=== PATIENT | male | born 1990 | race American Indian/Alaskan Native ===

== ENCOUNTER 2016-12-09 11:57 | Emergency (ER) | payer SELFPAY ==
[2016-12-09] MEDS ORDERED: KEPPRA 1,000 MG/NS 0.75% 100ML 1,000 MG/100 ML BAG IV ONE (12:17)
--- NOTE | 2016-12-09 12:29 | Emergency Department Report ---
ED Seizure HPI - General Chief Complaint: Seizure Stated Complaint: SEIZURE/FALL Time Seen by Provider: 12/09/16 12:13 Source: patient, EMS Mode of arrival: Stretcher Limitations: Other - History of Present Illness Initial Comments: 26-year-old male with a known seizure history here post-tonic clonic seizure. He has been without his Keppra for at least 5 days. He had a recurrent seizure 3 days ago. No other precipitating events no fevers chills nausea vomiting headache. He does have an abrasion to his left cheek and his left lower jaw. In addition he has a avulsion to the bridge of his nose. MD Complaint: seizure -: Sudden Description of Episode: tonic-clonic movement Trauma: Yes Seizure History: known seizure disorder, history of non-compliance Place: street/outdoors Possible Precipitating Event: none, medication (lack of medication) Associated Symptoms: denies other symptoms Treatments Prior to Arrival: none - Related Data Previous Rx's Medication Instructions Recorded Last Taken Type Cephalexin [Keflex] 500 mg PO Q8HR #21 cap 12/09/16 Unknown Rx HYDROcodone/APAP 5-325 [[place] 1 each PO Q6HR PRN #5 tablet 12/09/16 Unknown Rx 5-325 mg TAB] Ibuprofen [Motrin] 600 mg PO Q8H PRN #30 tablet 12/09/16 Unknown Rx levETIRAcetam [Keppra TAB] 1,000 mg PO BID #60 tablet 12/09/16 Unknown Rx Allergies Allergy/AdvReac Type Severity Reaction Status Date / Time No Known Allergies Allergy Unverified 11/28/13 19:39 ED Review of Systems ROS: Stated complaint: SEIZURE/FALL Other details as noted in HPI Constitutional: denies: chills, fever Eyes: denies: eye pain, eye discharge, vision change ENT: other (nose pain). denies: ear pain, throat pain Respiratory: denies: cough, shortness of breath, wheezing Cardiovascular: denies: chest pain, palpitations Endocrine: no symptoms reported Gastrointestinal: denies: abdominal pain, nausea, diarrhea Genitourinary: denies: urgency, dysuria Musculoskeletal: denies: back pain, joint swelling, arthralgia Skin: denies: rash, lesions Neurological: denies: headache, weakness, paresthesias Psychiatric: denies: anxiety, depression Hematological/Lymphatic: denies: easy bleeding, easy bruising ED Past Medical Hx - Past Medical History Previous Medical History?: Yes Hx Seizures: Yes Hx Psychiatric Treatment: No - Surgical History Past Surgical History?: No - Family History Family history: no significant - Social History Smoking Status: Current Every Day Smoker Substance Use Type: None - Medications Home Medications: Home Medications Medication Instructions Recorded Confirmed Last Taken Type Cephalexin [Keflex] 500 mg PO Q8HR #21 cap 12/09/16 Unknown Rx HYDROcodone/APAP 5-325 [[place] 1 each PO Q6HR PRN #5 tablet 12/09/16 Unknown Rx 5-325 mg TAB] Ibuprofen [Motrin] 600 mg PO Q8H PRN #30 tablet 12/09/16 Unknown Rx levETIRAcetam [Keppra TAB] 1,000 mg PO BID #60 tablet 12/09/16 Unknown Rx ED Physical Exam - General Limitations: No Limitations, Other General appearance: alert - Expanded Head Exam Expanded Head exam: Present: laceration (bridge of nose). Absent: hematoma, racoon eyes , caba's sign 1 - Avulsion 2 - Abrasion 3 - Abrasion - Eye Eye exam: Present: normal appearance Pupils: Present: normal accommodation - ENT ENT exam: Present: normal exam, mucous membranes dry, other (no evidence of trauma) - Neck Neck exam: Present: normal inspection. Absent: tenderness, lymphadenopathy - Respiratory Respiratory exam: Present: normal lung sounds bilaterally. Absent: respiratory distress - Cardiovascular Cardiovascular Exam: Present: regular rate, normal rhythm - GI/Abdominal GI/Abdominal exam: Present: soft. Absent: distended - Extremities Exam Extremities exam: Present: normal inspection, full ROM - Back Exam Back exam: Present: normal inspection - Neurological Exam Neurological exam: Present: alert, oriented X3. Absent: CN II-XII intact - Psychiatric Psychiatric exam: Present: normal affect, normal mood. Absent: depressed ED Course Vital Signs 12/09/16 12/09/16 12/09/16 11:54 12:00 12:04 Temperature 97.6 F Pulse Rate 77 85 Respiratory 13 13 Rate Blood Pressure 117/75 Blood Pressure 122/79 [Left] O2 Sat by Pulse 97 100 99 Oximetry 12/09/16 12/09/16 12:30 13:01 Temperature Pulse Rate 73 60 Respiratory 19 16 Rate Blood Pressure 124/77 112/69 Blood Pressure [Left] O2 Sat by Pulse 99 99 Oximetry - Laceration /Wound Repair Nose Wound Location: head (nose) Wound Length (cm): 5 (millimeters circumferential) Wound's Depth, Shape: flap Wound Explored: clean Irrigated w/ Saline (ccs): 500 Betadine Prep?: No Anesthesia: 1% Lidocaine Wound Repaired With: sutures Suture Size/Type: 4:0 Number of Sutures: 4 Layer Closure?: No Sterile Dressing Applied?: No Progress: Patient tolerated without complication. ED Medical Decision Making - Lab Data Result diagrams: 12/09/16 12:30 12/09/16 12:30 Laboratory Results - last 24 hr 12/09/16 12/09/16 12:30 12:30 WBC 7.4 RBC 5.19 H Hgb 14.7 Hct 44.8 MCV 86 MCH 28 MCHC 33 RDW 13.0 L Plt Count 187 Lymph % (Auto) 7.7 L [place] % (Auto) 3.9 Eos % (Auto) 0.2 Baso % (Auto) 0.2 Lymph # 0.6 L [place] # 0.3 Eos # 0.0 Baso # 0.0 Seg Neutrophils % 88.0 H Seg Neutrophils # 6.5 Sodium 138 Potassium 4.4 Chloride 98.2 Carbon Dioxide 25 Anion Gap 19 BUN 9 Creatinine 1.0 Estimated GFR > 60 BUN/Creatinine Ratio 9.00 Glucose 135 H Calcium 9.4 - Medical Decision Making 26-year-old male with known seizure disorder noncompliant with medications here with recurrent seizure. Plan to repair laceration on the bridge of his nose. We'll give him a dose of Keppra planned a CT head neck and face although I suspect that he does not have fracture. CT head neck and face all unremarkable. Labs unremarkable. Discussed at length with family regarding patient's medications. He will follow up with social work to help with pain meds. Plan to discharge home on oral antibiotics. Patient counseled to follow up in 5 days for suture removal. Portions of this chart were dictated with dictation software. There may be dictation errors contained within this note. Critical care attestation.: If time is entered above; I have spent that time in minutes in the direct care of this critically ill patient, excluding procedure time. ED Disposition Clinical Impression: Seizure, Laceration Disposition: DC- TO HOME OR SELFCARE Is pt being admited?: No Condition: Stable Instructions: Recurrent Seizures Adult (ED), Laceration (ED) Prescriptions: Cephalexin [Keflex] 500 mg PO Q8HR #21 cap HYDROcodone/APAP 5-325 [[place] 5-325 mg TAB] 1 each PO Q6HR PRN #5 tablet PRN Reason: Pain Ibuprofen [Motrin] 600 mg PO Q8H PRN #30 tablet PRN Reason: Pain levETIRAcetam [Keppra TAB] 1,000 mg PO BID #60 tablet Referrals: PRIMARY CARE, [Primary Care Provider] - 3-5 Days
[2016-12-09 12:50] LABS: Basophils % (Auto) 0.2 % (0.0-1.8); Eosinophils % (Auto) 0.2 % (0.0-4.3); Hematocrit 44.8 % (35.5-45.6); Hemoglobin 14.7 gm/dl (11.8-15.2); Mean Corpuscular HGB Conc 33 % (32-34); Mean Corpuscular Hemoglobin 28 pg (28-32); Mean Corpuscular Volume 86 fl (84-94); Platelet Count 187 K/mm3 (140-440); Red Blood Count 5.19 M/mm3 (3.65-5.03); White Blood Count 7.4 K/mm3 (4.5-11.0)
[2016-12-09 13:04] LABS: Anion Gap 19 mmol/L; Blood Urea Nitrogen 9 mg/dL (9-20); Calcium 9.4 mg/dL (8.4-10.2); Carbon Dioxide 25 mmol/L (22-30); Chloride 98.2 mmol/L (98-107); Glucose 135 mg/dL (75-100); Potassium 4.4 mmol/L (3.6-5.0); Sodium 138 mmol/L (137-145)
[2016-12-09] MEDS ORDERED: XYLOCAINE 1% 20 mL ONE (13:06)
[2016-12-09] MEDS ORDERED: NACL 0.9% 500 ML IR ONE (13:06)
[2016-12-09] MEDS ORDERED: BOOSTRIX IM ONE (13:36)
--- NOTE | 2016-12-09 13:53 | Cat Scan Report ---
CT HEAD WITHOUT CONTRAST INDICATION: Fall with trauma. COMPARISON: None similar. FINDINGS: Noncontrast head CT demonstrates normal ventricles and sulci without acute or recent infarct, hemorrhage, mass effect or midline shift. No abnormal extra-axial fluid collections. Posterior fossa structures and basilar cisterns appear within normal limits. Symmetric eye globes. Rightward nasal septal bowing. Mild right sphenoid, maxillary and bilateral ethmoid sinus mucosal thickening. Clear remainder imaged paranasal sinuses and mastoid air cells. Intact calvarium. Normal overlying scalp soft tissues. Few radiopaque dental material incidentally noted. CONCLUSION: No acute intracranial CT abnormality with mild sinusitis, as described. Thank you for the opportunity to participate in this patient's care.
--- NOTE | 2016-12-09 13:55 | Cat Scan Report ---
CT FACIAL BONES WITHOUT CONTRAST: HISTORY: Fall with trauma. TECHNIQUE: Helical CT images with sagittal and coronal CT reformations. FINDINGS: No sinus wall fracture, fluid level or opacification. The orbital cavities are symmetric and intact. The mandible is intact. The skull base and upper cervical spine demonstrate no evidence for acute injury. Soft tissue laceration on the bridge of the nose this noted. IMPRESSION: Unremarkable CT of the facial bones.
--- NOTE | 2016-12-09 13:58 | Cat Scan Report ---
CT CERVICAL SPINE WITHOUT CONTRAST INDICATION: Fall with trauma. COMPARISON: None similar. FINDINGS: Noncontrast axial, sagittal and coronal CT reconstructions of the cervical spine demonstrate normal visualized intracranial appearance. Streak artifact from few radiopaque dental material noted. Assessment of the spinal canal from C7-T1 inferiorly also compromised due to artifact from shoulder soft tissues. Right sphenoid sinusitis. Clear imaged mastoid air cells. Symmetric occipital condyles. Normal anterior and posterior arches of C1. Intact craniocervical articulation with normal predental space, prevertebral soft tissues, vertebral body stature, alignment, disc heights and posterior elements. On the obtained axial images, approximately 5 mm midline calcification noted behind C5 superiorly. Slight central disc bulge at C5-C6 also not excluded. Normal included thyroid. Clear visualized lung apices. CONCLUSION: No acute cervical spine CT abnormality with few incidental findings, as above. Please correlate. Thank you for the opportunity to participate in this patient's care.
[2016-12-09 15:18] VITALS: BP 123/84
== END 2016-12-09 15:10 | disposition home or self-care (01) ==
LOC: ED 11:57
DX: S01.21XA Laceration without foreign body of nose, initial encounter (principal); R56.9 Unspecified convulsions; F17.200 Nicotine dependence, unspecified, uncomplicated; W19.XXXA Unspecified fall, initial encounter; Y93.89 Activity, other specified; Y99.9 Unspecified external cause status; Y92.89 Other specified places as the place of occurrence of the external cause
CPT/HCPCS: 12013; 36415; 70450; 70486; 72125; 80048; 85025; 90471; 90715; 96374; 99284; J1953

== ENCOUNTER 2016-12-26 10:36 | Inpatient (IN) | payer SELFPAY ==
--- NOTE | 2016-12-26 11:41 | Emergency Department Report ---
ED Seizure HPI - General Chief Complaint: Seizure Stated Complaint: SEIZURES Time Seen by Provider: 12/26/16 11:27 Source: patient Mode of arrival: Ambulatory Limitations: No Limitations - History of Present Illness Initial Comments: Patient is a 26-year-old male with a known seizure history here status post seizure. Patient seized approximately one hour ago. He was recently here for a similar episode about 2 weeks ago. He has sutures left in his nose from that episode. He takes Keppra for his seizures and states that he has been taking his medication. No fevers chills nausea vomiting. He did bite his cheek. No fevers chills nausea vomiting. -: Sudden Description of Episode: tonic-clonic movement, post-event confusion Trauma: No Seizure History: known seizure disorder Possible Precipitating Event: none Treatments Prior to Arrival: none - Related Data Previous Rx's Medication Instructions Recorded Last Taken Type Cephalexin [Keflex] 500 mg PO Q8HR #21 cap 12/09/16 Unknown Rx HYDROcodone/APAP 5-325 [[place] 1 each PO Q6HR PRN #5 tablet 12/09/16 Unknown Rx 5-325 mg TAB] Ibuprofen [Motrin] 600 mg PO Q8H PRN #30 tablet 12/09/16 Unknown Rx levETIRAcetam [Keppra TAB] 1,000 mg PO BID #60 tablet 12/09/16 Unknown Rx Allergies Allergy/AdvReac Type Severity Reaction Status Date / Time No Known Allergies Allergy Unverified 11/28/13 19:39 ED Review of Systems ROS: Stated complaint: SEIZURES Other details as noted in HPI Comment: All other systems reviewed and negative Constitutional: denies: chills, fever Eyes: denies: eye pain, eye discharge, vision change ENT: denies: ear pain, throat pain Respiratory: denies: cough, shortness of breath, wheezing Cardiovascular: denies: chest pain, palpitations Endocrine: no symptoms reported Gastrointestinal: denies: abdominal pain, nausea, diarrhea Genitourinary: denies: urgency, dysuria Musculoskeletal: denies: back pain, joint swelling, arthralgia Skin: denies: rash, lesions Neurological: denies: headache, weakness, paresthesias Psychiatric: denies: anxiety, depression Hematological/Lymphatic: denies: easy bleeding, easy bruising ED Past Medical Hx - Past Medical History Previous Medical History?: Yes Hx Seizures: Yes Hx Psychiatric Treatment: No - Surgical History Past Surgical History?: No - Family History Family history: no significant - Social History Smoking Status: Current Every Day Smoker Substance Use Type: None, Marijuana - Medications Home Medications: Home Medications Medication Instructions Recorded Confirmed Last Taken Type Cephalexin [Keflex] 500 mg PO Q8HR #21 cap 12/09/16 Unknown Rx HYDROcodone/APAP 5-325 [[place] 1 each PO Q6HR PRN #5 tablet 12/09/16 Unknown Rx 5-325 mg TAB] Ibuprofen [Motrin] 600 mg PO Q8H PRN #30 tablet 12/09/16 Unknown Rx levETIRAcetam [Keppra TAB] 1,000 mg PO BID #60 tablet 12/09/16 Unknown Rx ED Physical Exam - General Limitations: No Limitations General appearance: alert, in no apparent distress - Head Head exam: Present: atraumatic, normocephalic - Eye Eye exam: Present: normal appearance - ENT ENT exam: Present: mucous membranes moist - Neck Neck exam: Present: normal inspection - Respiratory Respiratory exam: Present: normal lung sounds bilaterally. Absent: respiratory distress - Cardiovascular Cardiovascular Exam: Present: regular rate, normal rhythm. Absent: systolic murmur, diastolic murmur, rubs, gallop - GI/Abdominal GI/Abdominal exam: Present: soft, normal bowel sounds - Rectal Rectal exam: Present: deferred - Extremities Exam Extremities exam: Present: normal inspection - Back Exam Back exam: Present: normal inspection - Neurological Exam Neurological exam: Present: alert, oriented X3 - Psychiatric Psychiatric exam: Present: normal affect, normal mood - Skin Skin exam: Present: warm, dry, intact, normal color. Absent: rash ED Course Vital Signs 12/26/16 10:55 Temperature 98.8 F ED Medical Decision Making - Lab Data Result diagrams: 12/26/16 11:27 12/26/16 11:27 Laboratory Results - last 24 hr 12/26/16 12/26/16 11:27 11:27 WBC 6.3 RBC 5.19 H Hgb 14.5 Hct 45.1 MCV 87 MCH 28 MCHC 32 RDW 13.1 L Plt Count 211 Lymph % (Auto) 11.4 L [place] % (Auto) 6.9 Eos % (Auto) 0.9 Baso % (Auto) 0.7 Lymph # 0.7 L [place] # 0.4 Eos # 0.1 Baso # 0.0 Seg Neutrophils % 80.1 H Seg Neutrophils # 5.0 Sodium 139 Potassium 4.3 Chloride 95.8 L Carbon Dioxide 28 Anion Gap 20 BUN 11 Creatinine 1.1 Estimated GFR > 60 BUN/Creatinine Ratio 10.00 Glucose 108 H Calcium 9.7 Magnesium 2.20 Total Bilirubin 0.60 AST 13 ALT 8 Alkaline Phosphatase 65 Total Protein 7.6 Albumin 4.7 Albumin/Globulin Ratio 1.6 - Medical Decision Making 26-year-old male with known seizure history herewith seizure. No precipitating factors. He is taking his medications. Plan check chemistry and CBC but suspect we'll be able to discharge. Removed four stitches from bridge of nose Plan to observe and anticipate discharge. Patient had recurrent seizure at approximately 1 PM. Patient given 2 mg of IV Ativan and 1000 mg of Keppra IV. Plan to observe for several hours. He has an additional seizure plan to admit. Given the prolonged postictal. Plan to admit the patient for observation. Discussed the case with Dr. Morel Portions of this chart were dictated with dictation software. There may be dictation errors contained within this note.. Critical care attestation.: If time is entered above; I have spent that time in minutes in the direct care of this critically ill patient, excluding procedure time. ED Disposition Clinical Impression: Seizure, Post-ictal state Disposition: OP ADMIT IP TO THIS HOSP Is pt being admited?: Yes Condition: Stable Referrals: PRIMARY CARE, [Primary Care Provider] - 3-5 Days
[2016-12-26 11:50] LABS: Basophils % (Auto) 0.7 % (0.0-1.8); Eosinophils % (Auto) 0.9 % (0.0-4.3); Hematocrit 45.1 % (35.5-45.6); Hemoglobin 14.5 gm/dl (11.8-15.2); Mean Corpuscular HGB Conc 32 % (32-34); Mean Corpuscular Hemoglobin 28 pg (28-32); Mean Corpuscular Volume 87 fl (84-94); Platelet Count 211 K/mm3 (140-440); Red Blood Count 5.19 M/mm3 (3.65-5.03); Red Cell Distribution Width 13.1 % (13.2-15.2); White Blood Count 6.3 K/mm3 (4.5-11.0)
[2016-12-26 12:08] LABS: Alanine Aminotransferase 8 units/L (7-56); Albumin 4.7 g/dL (3.9-5); Albumin/Globulin Ratio 1.6 %; Alkaline Phosphatase 65 units/L (35-129); Anion Gap 20 mmol/L; Blood Urea Nitrogen 11 mg/dL (9-20); Calcium 9.7 mg/dL (8.4-10.2); Carbon Dioxide 28 mmol/L (22-30); Chloride 95.8 mmol/L (98-107); Glucose 108 mg/dL (75-100); Potassium 4.3 mmol/L (3.6-5.0); Sodium 139 mmol/L (137-145); Total Protein 7.6 g/dL (6.3-8.2)
[2016-12-26] MEDS ORDERED: ATIVAN ONE (12:53)
[2016-12-26] MEDS ORDERED: KEPPRA 1,000 MG/NS 0.75% 100ML 1,000 MG/100 ML BAG IV ONE ×2 (12:55→16:14)
[2016-12-26] MEDS ORDERED: ATIVAN IV ONE (12:57)
[2016-12-26] MEDS ORDERED: KEPPRA 500 MG in D5W 100 ML IV ONE ×2 (12:58→14:00)
[2016-12-26] MEDS: KEPPRA 500 MG in D5W 100 ML IV ONE ×2 (13:05→16:17)
[2016-12-26] MEDS: NACL 0.9% 1000 ML 1,000 ML IV ONE ×2 (13:05→16:14)
--- NOTE | 2016-12-26 15:48 | Cat Scan Report ---
FINAL REPORT PROCEDURE: CT HEAD/BRAIN WO CON TECHNIQUE: Computerized tomography of the head was performed without contrast material. HISTORY: prolonged post ictal COMPARISON: No prior studies are available for comparison. FINDINGS: Brain: Brain density appears normal. No evidence of intracranial hemorrhage. No parenchymal hemorrhage, mass lesions or mass effect are seen. No abnormal extraxial fluid collects or masses are seen. Ventricles: Ventricles are normal size and are midline. Bone Windows: No evidence of skull fracture. Paranasal sinuses: There is mild patchy mucosal disease in a few of the ethmoid air cells. Small nodular densities seen anteriorly in the left maxillary sinus measuring 4.5 millimeters. There appears to be mild mucosal thickening posteriorly in the right side of the sphenoid sinus. Paranasal sinuses otherwise appear clear. Mastoid air cells: Clear IMPRESSION: Minimal paranasal sinus disease otherwise negative unenhanced CT scan of the brain.
--- NOTE | 2016-12-26 17:04 | Event Note ---
Date: 12/26/16
[2016-12-26] MEDS ORDERED: NORCO 5/325 PO PRN (17:05)
[2016-12-26] MEDS ORDERED: MOTRIN PO PRN (17:05)
--- NOTE | 2016-12-26 17:05 | History and Physical Report ---
History of Present Illness Date of examination: 12/26/16 Date of admission: 12/26/16 Chief complaint: Active seizures x2 History of present illness: History of Present Illness Patient is a 26-year-old male with a known seizure history- here status post seizure. Patient seized approximately one hour ago. He was recently here for a similar episode about 2 weeks ago. He has sutures left in his nose from that episode. He takes Keppra for his seizures and states that he has been taking his medication. No fevers chills nausea vomiting. He did bite his cheek. No fevers chills nausea vomiting. -: Sudden Description of Episode: tonic-clonic movement, post-event confusion Trauma: No Seizure History: known seizure disorder Possible Precipitating Event: none Treatments Prior to Arrival: none Past Medical History Previous Medical History?: Yes Hx Seizures: Yes Hx Psychiatric Treatment: No - Surgical History Past Surgical History?: No - Family History Family history: no significant - Social History Smoking Status: Current Every Day Smoker Substance Use Type: None, Marijuana - Medications Home Medications: Home Medications Medication Instructions Recorded Confirmed Last Taken Type Cephalexin [Keflex] 500 mg PO Q8HR #21 cap 12/09/16 Unknown Rx HYDROcodone/APAP 5-325 [[place] 1 each PO Q6HR PRN #5 tablet 12/09/16 Unknown Rx 5-325 mg TAB] Ibuprofen [Motrin] 600 mg PO Q8H PRN #30 tablet 12/09/16 Unknown Rx levETIRAcetam [Keppra TAB] 1,000 mg PO BID #60 tablet 12/09/16 Unknown Rx Review of Systems ROS: Stated complaint: SEIZURES Other details as noted in HPI Comment: All other systems reviewed and negative Constitutional: denies: chills, fever Eyes: denies: eye pain, eye discharge, vision change ENT: denies: ear pain, throat pain Respiratory: denies: cough, shortness of breath, wheezing Cardiovascular: denies: chest pain, palpitations Endocrine: no symptoms reported Gastrointestinal: denies: abdominal pain, nausea, diarrhea Genitourinary: denies: urgency, dysuria Musculoskeletal: denies: back pain, joint swelling, arthralgia Skin: denies: rash, lesions Neurological: denies: headache, weakness, paresthesias Psychiatric: denies: anxiety, depression Hematological/Lymphatic: denies: easy bleeding, easy bruising Medications and Allergies Allergies Allergy/AdvReac Type Severity Reaction Status Date / Time No Known Allergies Allergy Unverified 11/28/13 19:39 Home Medications Medication Instructions Recorded Confirmed Last Taken Type levETIRAcetam [Keppra TAB] 1,000 mg PO BID #60 tablet 12/09/16 12/26/16 Rx Exam - Physical Exam Narrative exam: Lying comfortably.Sleeping most of the time - Constitutional Vitals: Temp Pulse Resp BP Pulse Ox 98.8 F 12/26/16 10:55 General appearance: Present: no acute distress, well-nourished - EENT Eyes: Present: PERRL ENT: hearing intact, clear oral mucosa - Neck Neck: Present: supple, normal ROM - Respiratory Respiratory effort: normal Respiratory: bilateral: CTA - Cardiovascular Heart rate: 76 Rhythm: regular Heart Sounds: Present: S1 & S2. Absent: rub, click - Extremities Extremities: no ischemia, pulses intact, pulses symmetrical, No edema Peripheral Pulses: within normal limits - Abdominal General gastrointestinal: Present: soft, non-tender, non-distended, normal bowel sounds Male genitourinary: Present: normal - Rectal Rectal Exam: deferred - Integumentary Integumentary: Present: clear, warm, dry - Musculoskeletal Musculoskeletal: gait normal, strength equal bilaterally - Psychiatric Psychiatric: appropriate mood/affect, intact judgment & insight - Neurologic Neurologic: CNII-XII intact, moves all extremities - Allied Health Allied health notes reviewed: nursing, case management Results - Labs CBC & Chem 7: 12/26/16 11:27 12/26/16 11:27 Labs: Laboratory Last Values WBC 6.3 K/mm3 (4.5-11.0) 12/26/16 11:27 RBC 5.19 M/mm3 (3.65-5.03) H 12/26/16 11:27 Hgb 14.5 gm/dl (11.8-15.2) 12/26/16 11:27 Hct 45.1 % (35.5-45.6) 12/26/16 11:27 MCV 87 fl (84-94) 12/26/16 11:27 MCH 28 pg (28-32) 12/26/16 11:27 MCHC 32 % (32-34) 12/26/16 11:27 RDW 13.1 % (13.2-15.2) L 12/26/16 11:27 Plt Count 211 K/mm3 (140-440) 12/26/16 11:27 Lymph % (Auto) 11.4 % (13.4-35.0) L 12/26/16 11:27 [place] % (Auto) 6.9 % (0.0-7.3) 12/26/16 11:27 Eos % (Auto) 0.9 % (0.0-4.3) 12/26/16 11:27 Baso % (Auto) 0.7 % (0.0-1.8) 12/26/16 11:27 Lymph # 0.7 K/mm3 (1.2-5.4) L 12/26/16 11:27 [place] # 0.4 K/mm3 (0.0-0.8) 12/26/16 11:27 Eos # 0.1 K/mm3 (0.0-0.4) 12/26/16 11:27 Baso # 0.0 K/mm3 (0.0-0.1) 12/26/16 11:27 Seg Neutrophils % 80.1 % (40.0-70.0) H 12/26/16 11:27 Seg Neutrophils # 5.0 K/mm3 (1.8-7.7) 12/26/16 11:27 Sodium 139 mmol/L (137-145) 12/26/16 11:27 Potassium 4.3 mmol/L (3.6-5.0) 12/26/16 11:27 Chloride 95.8 mmol/L (98-107) L 12/26/16 11:27 Carbon Dioxide 28 mmol/L (22-30) 12/26/16 11:27 Anion Gap 20 mmol/L 12/26/16 11:27 BUN 11 mg/dL (9-20) 12/26/16 11:27 Creatinine 1.1 mg/dL (0.8-1.5) 12/26/16 11:27 Estimated GFR > 60 ml/min 12/26/16 11:27 BUN/Creatinine Ratio 10.00 % 12/26/16 11:27 Glucose 108 mg/dL (75-100) H 12/26/16 11:27 Lactic Acid 3.60 mmol/L (0.7-2.0) H* 12/26/16 14:09 Calcium 9.7 mg/dL (8.4-10.2) 12/26/16 11:27 Magnesium 2.20 mg/dL (1.7-2.3) 12/26/16 11:27 Total Bilirubin 0.60 mg/dL (0.1-1.2) 12/26/16 11:27 AST 13 units/L (5-40) 12/26/16 11:27 ALT 8 units/L (7-56) 12/26/16 11:27 Alkaline Phosphatase 65 units/L (35-129) 12/26/16 11:27 Total Protein 7.6 g/dL (6.3-8.2) 12/26/16 11:27 Albumin 4.7 g/dL (3.9-5) 12/26/16 11:27 Albumin/Globulin Ratio 1.6 % 12/26/16 11:27 - Imaging and Cardiology EKG: report reviewed (Nsr 96/min) CT Scan - head: report reviewed (Minimal paranasal disease) Assessment and Plan Advance Directives: Yes (FC) VTE prophylaxis?: Chemical Plan of care discussed with patient/family: Yes - Patient Problems (1) Post-ictal state Current Visit: Yes Status: Acute Plan to address problem: For Observation IV fluids for now IV keppra (2) Seizure Current Visit: Yes Status: Chronic Plan to address problem: Cont iv/po Keppra (3) DVT prophylaxis Current Visit: Yes Status: Acute Plan to address problem: on Lovenox 40 sq qd
[2016-12-26] MEDS ORDERED: DULCOLAX PR PRN (17:06)
[2016-12-26] MEDS ORDERED: MILK OF MAGNESIA PO PRN (17:06)
[2016-12-26] MEDS ORDERED: DILAUDID IV PRN (17:06)
[2016-12-26] MEDS ORDERED: ZOFRAN IV PRN (17:06)
[2016-12-26] MEDS ORDERED: TYLENOL PO PRN (17:06)
[2016-12-26] MEDS ORDERED: D5NS 1,000 ML IV SCH (18:00)
[2016-12-26] MEDS: KEPPRA PO SCH (21:35)
[2016-12-26] MEDS ORDERED: KEPPRA 750 MG in D5W 100 ML IV SCH (23:00)
[2016-12-27 08:24] VITALS: BP 114/70
[2016-12-27] MEDS: KEPPRA PO SCH (10:32)
--- NOTE | 2016-12-27 10:48 | Discharge Summary ---
Providers - Providers Date of Admission: 12/26/16 17:06 Date of discharge: 12/27/16 Attending physician: ADRIANO ESPANA Primary care physician: HOG TRADER Hospitalization Reason for admission: sz Condition: Stable Hospital course: This is a 26-year-old male with significant past medical history of seizure disorder who presented to the emergency department with complaints of seizure. The seizure occurred approximately 1 hour prior to admission. Patient was recently seen at this facility approximately 2 weeks ago for a seizure at that time. Patient also has some trauma to the nose and received sutures. Patient takes Keppra for his seizures and states that he has been compliant with his medications. However, upon further history patient reports that he has been taking 500 mg twice a day but was discharged with a prescription for 1000 mg twice a day on his last hospitalization. Patient denied any fever, chills, nausea or vomiting. Patient did bite his cheek with the latest seizure. Patient was monitored in the hospital with no further seizure activity. Patient had neuro checks and seizure precautions. CT scan of the head was essentially negative. Patient had a Keppra level which can be followed up as an outpatient. Patient reports that he does not have a neurologist or primary care physician. Therefore, patient will be given the name of Dr. Wilkinson for follow-up. Patient was counseled with regards to his medication of 1000 mg twice a day. Patient was also counseled with no driving until cleared by PCP or neurology as well as avoidance of [place] and water until cleared. Dedicated discharge time 32 minutes. Disposition: [id number] TO HOME OR SELFCARE Time spent for discharge: 32 - Discharge Diagnoses (1) Post-ictal state Status: Acute (2) Seizure Status: Chronic Core Measure Documentation - Palliative Care Palliative Care/ Comfort Measures: Not Applicable - Core Measures Any of the following diagnoses?: none Exam - Constitutional Vitals: Temp Pulse Resp BP Pulse Ox 98.4 F 69 20 114/70 100 12/27/16 08:00 12/27/16 08:00 12/27/16 08:26 12/27/16 08:00 12/27/16 08:00 General appearance: Present: no acute distress, well-nourished - EENT Eyes: Present: PERRL ENT: hearing intact, clear oral mucosa - Neck Neck: Present: supple, normal ROM - Respiratory Respiratory effort: normal Respiratory: bilateral: CTA - Cardiovascular Heart Sounds: Present: S1 & S2. Absent: rub, click - Extremities Extremities: pulses symmetrical, No edema Peripheral Pulses: within normal limits - Abdominal General gastrointestinal: Present: soft, non-tender, non-distended, normal bowel sounds Male genitourinary: Present: normal - Integumentary Integumentary: Present: clear, warm, dry - Musculoskeletal Musculoskeletal: gait normal, strength equal bilaterally - Psychiatric Psychiatric: appropriate mood/affect, intact judgment & insight - Neurologic Neurologic: CNII-XII intact, moves all extremities Plan Activity: no restrictions, no driving until cleared by PCP Weight Bearing Status: Full Weight Bearing Follow up with: PRIMARY CARE, [Primary Care Provider] - 3-5 Days JUJU WILKINSON MD [Staff Physician] - 7 Days Prescriptions: HYDROcodone/APAP 5-325 [[place] 5-325 mg TAB] 1 each PO Q6HR PRN #10 tablet PRN Reason: Pain levETIRAcetam [Keppra TAB] 1,000 mg PO BID #60 tablet
== END 2016-12-27 14:30 | disposition home or self-care (01) | DRG 101 ==
LOC: ED 10:36 → 3A 17:06
PROVIDERS: ADMIT Internal Medicine; ATTEND Hospitalist
DX: G40.909 Epilepsy, unspecified, not intractable, without status epilepticus (principal); F17.210 Nicotine dependence, cigarettes, uncomplicated; Z79.899 Other long term (current) drug therapy
CPT/HCPCS: 36415; 70450; 80053; 80177; 82140; 83735; 85025; 96365; 96375; 99285; 99406; J1953; J2060

== ENCOUNTER 2017-01-09 21:47 | Emergency (ER) | payer OTHER ==
[2017-01-09] MEDS ORDERED: KEPPRA 1,000 MG/NS 0.75% 100ML 1,000 MG/100 ML BAG IV ONE (22:06)
[2017-01-09] MEDS ORDERED: TENIVAC IM ONE (22:06)
[2017-01-09] MEDS ORDERED: BOOSTRIX IM ONE (22:21)
--- NOTE | 2017-01-09 22:25 | Emergency Department Report ---
ED Seizure HPI - General Stated Complaint: SEIZURE Time Seen by Provider: 01/09/17 22:00 Source: patient Mode of arrival: Ambulatory Limitations: No Limitations - History of Present Illness Initial Comments: 26 yo male with a past medical history seizure disorder presents to the hospital with complaints of 1 mL yesterday and one seizure prior to arrival. Patient has no preceding symptoms. Patient was admitted here December 26 until December 27 for seizure secondary to medication noncompliance and prescribed Keppra 1000 mg twice a day 60 tablets and [place] for pain. Patient did not fill the seizure medication from his recent discharge because he could not afford the medication. Patient presents with a small laceration and hematoma to the forehead, abrasion of the skin to his nasal bridge, and complaint of headache. He denies tongue laceration or urinary incontinence. No focal weakness or numbness reported. - Related Data Previous Rx's Medication Instructions Recorded Last Taken Type HYDROcodone/APAP 5-325 [[place] 1 each PO Q6HR PRN #10 tablet 12/27/16 Unknown Rx 5-325 mg TAB] Bacitracin/Pramoxine/Aloe Vera 1 applicatio TP TID #1 tube 01/10/17 Unknown Rx [Bacitraycin Plus Ointment] levETIRAcetam [Keppra TAB] 1,000 mg PO BID #60 tablet 01/10/17 Unknown Rx Allergies Allergy/AdvReac Type Severity Reaction Status Date / Time No Known Allergies Allergy Unverified 11/28/13 19:39 ED Review of Systems ROS: Stated complaint: SEIZURE Other details as noted in HPI Comment: All other systems reviewed and negative Other: General: No fever or chills Eyes: No blurry vision or discharge HEENT: No throat pain Neck: No pain Respiratory: No shortness of breath, wheezing, or coughing Cardiovascular: No chest pain, palpitations, or syncope GI: No abdominal pain, nausea, vomiting, diarrhea, melena, or hematochezia : No dysuria or increased frequency Musculoskeletal: No back pain, no joint swelling Neurologic: Denies focal weakness, or focal numbness Psychiatric: Denies hallucinations, suicidal ideation, homicidal ideation Skin: As per HPI ED Past Medical Hx - Past Medical History Hx Congestive Heart Failure: No Hx Diabetes: No Hx Seizures: Yes Hx Psychiatric Treatment: No Hx Asthma: No Hx COPD: No - Social History Smoking Status: Current Every Day Smoker - Medications Home Medications: Home Medications Medication Instructions Recorded Confirmed Last Taken Type HYDROcodone/APAP 5-325 [[place] 1 each PO Q6HR PRN #10 tablet 12/27/16 01/09/17 Unknown Rx 5-325 mg TAB] Bacitracin/Pramoxine/Aloe Vera 1 applicatio TP TID #1 tube 01/10/17 Unknown Rx [Bacitraycin Plus Ointment] levETIRAcetam [Keppra TAB] 1,000 mg PO BID #60 tablet 01/10/17 Unknown Rx ED Physical Exam - Other Other exam information: General: No acute distress, Head: 0.5 cm vertical laceration to forehead with hematoma, mild active bleeding Eyes: Normal appearance, pupils equal and reactive to light, extraocular movements intact HEENT: Moist mucous membranes, normal oropharynx laceration, abrasion to nasal bridge, no septal hematoma or crepitus Neck: Full range of motion, normal inspection, no midline tenderness CV: Regular rate and rhythm Respiratory: Clear to auscultation, no wheezes, rales, or crackles Abdomen: Soft, nondistended, nontender, normal bowel sounds, no rebound or guarding Extremities: Full range of motion, no deformity Back: Normal inspection, nontender, full range of motion Neurologic: Alert and oriented 3, cranial nerves grossly intact, no motor or sensory deficit Psychiatric: Normal mood and affect Skin: 5 mm vertical laceration to the forehead. 1 cm abrasion to nasal bridge ED Course Vital Signs 01/09/17 01/09/17 22:42 23:09 Temperature 98.3 F 98.3 F Pulse Rate 62 62 Respiratory 21 20 Rate Blood Pressure 114/90 Blood Pressure 114/90 [Left] O2 Sat by Pulse 99 98 Oximetry - Reevaluation(s) Reevaluation #1: 01/09/17 22:25 Keppra, tetanus ordered. Seizure precautions - Laceration /Wound Repair Face Wound Location: face Wound Length (cm): 5 (mm) Wound's Depth, Shape: linear Wound Explored: clean Irrigated w/ Saline (ccs): 50 Betadine Prep?: Yes Wound Repaired With: Dermabond Layer Closure?: No Sterile Dressing Applied?: No ED Medical Decision Making - Lab Data Result diagrams: 01/09/17 22:35 01/09/17 22:35 Lab Results 01/09/17 01/09/17 Range/Units 22:35 22:35 WBC 5.1 (4.5-11.0) K/mm3 RBC 4.79 (3.65-5.03) M/mm3 Hgb 13.4 (11.8-15.2) gm/dl Hct 41.8 (35.5-45.6) % MCV 87 (84-94) fl MCH 28 (28-32) pg MCHC 32 (32-34) % RDW 13.0 L (13.2-15.2) % Plt Count 182 (140-440) K/mm3 Sodium 139 (137-145) mmol/L Potassium 4.0 (3.6-5.0) mmol/L Chloride 99.9 (98-107) mmol/L Carbon Dioxide 23 (22-30) mmol/L Anion Gap 20 mmol/L BUN 8 L (9-20) mg/dL Creatinine 1.0 (0.8-1.5) mg/dL Estimated GFR > 60 ml/min BUN/Creatinine Ratio 8.00 % Glucose 92 (75-100) mg/dL Calcium 9.3 (8.4-10.2) mg/dL Magnesium 2.00 (1.7-2.3) mg/dL - Radiology Data Radiology results: report reviewed (ct head: naf) - Medical Decision Making Dermabond applied to for head laceration. Patient has a significant abrasion to nasal bridge however, not amendable to suture Given missing superficial layer of skin. Antibiotic ointment and bandage applied to nasal abrasion. Patient received IV Keppra. No further seizure activity. CT head does not show acute findings. Will be discharged with recommended outpatient follow-up. Good rx card will be provided to make his seizure medication more affordable Tetanus given since patient was unsure of last tetanus shot - Differential Diagnosis breakthrough seizure, medication noncompliance, ICH Critical Care Time: No Critical care attestation.: If time is entered above; I have spent that time in minutes in the direct care of this critically ill patient, excluding procedure time. ED Disposition Clinical Impression: Seizure, Noncompliance with medication regimen, Face lacerations, Nose abrasion Disposition: - TO HOME OR SELFCARE Is pt being admited?: No Does the pt Need Aspirin: No Condition: Stable Instructions: Recurrent Seizures Adult (ED), Skin Adhesive Care (ED), Abrasion (ED) Additional Instructions: Take the medication as prescribed. Use bacitracin only on your nose abrasion. Do not apply bacitracin to the area of your skin glue. Continue to monitor for signs of infection. Return if symptoms worsen. Use the good RX card provided to make your seizure medication more affordable Prescriptions: Bacitracin/Pramoxine/Aloe Vera [Bacitraycin Plus Ointment] 1 applicatio TP TID # 1 tube levETIRAcetam [Keppra TAB] 1,000 mg PO BID #60 tablet Referrals: CISCO HOFFMAN MD [Staff Physician] - 3-5 Days (neurology) [facility] [Provider Group] - 3-5 Days (Primary care clinic) Time of Disposition: 00:25
[2017-01-09 22:52] LABS: Hematocrit 41.8 % (35.5-45.6); Hemoglobin 13.4 gm/dl (11.8-15.2); Mean Corpuscular HGB Conc 32 % (32-34); Mean Corpuscular Hemoglobin 28 pg (28-32); Mean Corpuscular Volume 87 fl (84-94); Platelet Count 182 K/mm3 (140-440); Red Blood Count 4.79 M/mm3 (3.65-5.03); White Blood Count 5.1 K/mm3 (4.5-11.0)
[2017-01-09 23:07] LABS: Anion Gap 20 mmol/L; Blood Urea Nitrogen 8 mg/dL (9-20); Calcium 9.3 mg/dL (8.4-10.2); Carbon Dioxide 23 mmol/L (22-30); Chloride 99.9 mmol/L (98-107); Glucose 92 mg/dL (75-100); Sodium 139 mmol/L (137-145)
--- NOTE | 2017-01-09 23:41 | Cat Scan Report ---
FINAL REPORT PROCEDURE: CT HEAD/BRAIN WO CON TECHNIQUE: Computerized tomography of the head was performed without contrast material. HISTORY: sz, head injury COMPARISON: No prior studies are available for comparison. FINDINGS: Skull and scalp: Normal. Paranasal sinuses: Normal. Ventricles and subarachnoid spaces: Normal. Cerebrum: No evidence of hemorrhage, acute infarction or mass . Cerebellum and brainstem: No evidence of hemorrhage, acute infarction or mass. Vasculature: Normal. Comments: None. IMPRESSION: Normal Examination
[2017-01-10] MEDS ORDERED: TRIPLE ANTIBIOTIC TP ONE (00:32)
[2017-01-10 00:34] VITALS: BP 128/64
== END 2017-01-10 00:36 | disposition home or self-care (01) ==
LOC: ED 21:47
DX: S01.81XA Laceration without foreign body of other part of head, initial encounter (principal); S00.31XA Abrasion of nose, initial encounter; G40.909 Epilepsy, unspecified, not intractable, without status epilepticus; F17.200 Nicotine dependence, unspecified, uncomplicated; X58.XXXA Exposure to other specified factors, initial encounter; Y93.89 Activity, other specified; Y92.89 Other specified places as the place of occurrence of the external cause; Y99.8 Other external cause status
CPT/HCPCS: 12011; 36415; 70450; 80048; 83735; 85027; 90471; 90715; 96365; 99285; J1953; A6250

== ENCOUNTER 2017-03-09 08:59 | Emergency (ER) | payer SELFPAY ==
[2017-03-09] MEDS ORDERED: NACL 0.9% 1000 ML 1,000 ML IV ONE (11:28)
[2017-03-09] MEDS ORDERED: TORADOL IV ONE (11:28)
[2017-03-09 11:50] LABS: Basophils % (Auto) 0.3 % (0.0-1.8); Eosinophils % (Auto) 0.1 % (0.0-4.3); Hematocrit 47.1 % (35.5-45.6); Hemoglobin 15.9 gm/dl (11.8-15.2); Mean Corpuscular HGB Conc 34 % (32-34); Mean Corpuscular Hemoglobin 29 pg (28-32); Mean Corpuscular Volume 86 fl (84-94); Platelet Count 147 K/mm3 (140-440); Red Blood Count 5.47 M/mm3 (3.65-5.03); White Blood Count 7.2 K/mm3 (4.5-11.0)
[2017-03-09 12:00] LABS: INR 1.04 (0.87-1.13)
[2017-03-09 12:01] LABS: Partial Thromboplastin Time 30.4 Sec. (24.2-36.6)
[2017-03-09 12:13] LABS: Creatine Kinase MB < 1.0 ng/mL (0.0-4.0)
[2017-03-09 12:14] LABS: Alanine Aminotransferase 15 units/L (7-56); Albumin 4.4 g/dL (3.9-5); Albumin/Globulin Ratio 1.3 %; Alkaline Phosphatase 81 units/L (35-129); Anion Gap 19 mmol/L; BUN/Creatinine Ratio 8; Blood Urea Nitrogen 8 mg/dL (9-20); Calcium 9.4 mg/dL (8.4-10.2); Carbon Dioxide 25 mmol/L (22-30); Chloride 95.9 mmol/L (98-107); Glucose 96 mg/dL (75-100); Potassium 4.3 mmol/L (3.6-5.0); Sodium 136 mmol/L (137-145); Total Protein 7.9 g/dL (6.3-8.2)
[2017-03-09 12:15] LABS: Bilirubin,Direct < 0.2 mg/dL (0-0.2); Bilirubin,Indirect 0.3 mg/dL
--- NOTE | 2017-03-09 12:23 | Emergency Department Report ---
ED General Adult HPI - General Chief complaint: Fever Stated complaint: HEADACHE, DIZZINESS, BODY ACHES Time Seen by Provider: 03/09/17 11:19 Source: patient Mode of arrival: Ambulatory Limitations: No Limitations - History of Present Illness Initial comments: Patient complains of essentially total body aching for the last 2 days. He states that his arms and legs have been hurting as well as her abdomen and chest and head. Said a feeling of malaise. He states that the pain is not specifically affecting his head in any way. Does not report a severe headache. He states he again woke up very achy this morning and decided to come to the hospital for evaluation. He's felt like he's had a fever but hasn't checked his temperature and does not describe any neck pain, nausea vomiting or photophobia. -: days(s) Location: head, chest, back, abdomen, upper extremity, lower extremity Radiation: non-radiation Severity scale (0 -10): 7 Quality: aching Consistency: intermittent Improves with: none Worsens with: none Associated Symptoms: denies other symptoms, fever/chills (subjective), headaches Treatments Prior to Arrival: none - Related Data Previous Rx's Medication Instructions Recorded Last Taken Type HYDROcodone/APAP 5-325 [[place] 1 each PO Q6HR PRN #10 tablet 12/27/16 Unknown Rx 5-325 mg TAB] Bacitracin/Pramoxine/Aloe Vera 1 applicatio TP TID #1 tube 01/10/17 Unknown Rx [Bacitraycin Plus Ointment] levETIRAcetam [Keppra TAB] 1,000 mg PO BID #60 tablet 01/10/17 Unknown Rx Naproxen [Naprosyn] 500 mg PO BID #10 tablet 03/09/17 Unknown Rx traMADol [Ultram] 50 mg PO Q4HR PRN #10 tablet 03/09/17 Unknown Rx Allergies Allergy/AdvReac Type Severity Reaction Status Date / Time No Known Allergies Allergy Unverified 11/28/13 19:39 ED Review of Systems ROS: Stated complaint: HEADACHE, DIZZINESS, BODY ACHES Other details as noted in HPI Constitutional: denies: chills, fever Eyes: denies: eye pain, eye discharge, vision change ENT: denies: ear pain, throat pain Respiratory: denies: cough, shortness of breath, wheezing Cardiovascular: denies: chest pain, palpitations Endocrine: no symptoms reported Gastrointestinal: denies: abdominal pain, nausea, diarrhea Genitourinary: denies: urgency, dysuria Musculoskeletal: as per HPI. denies: back pain, joint swelling, arthralgia Skin: denies: rash, lesions Neurological: headache. denies: weakness, paresthesias Psychiatric: denies: anxiety, depression Hematological/Lymphatic: denies: easy bleeding, easy bruising ED Past Medical Hx - Past Medical History Previous Medical History?: Yes Hx Congestive Heart Failure: No Hx Diabetes: No Hx Seizures: Yes Hx Psychiatric Treatment: No Hx Asthma: No Hx COPD: No - Surgical History Past Surgical History?: No - Social History Smoking Status: Current Every Day Smoker Substance Use Type: Alcohol - Medications Home Medications: Home Medications Medication Instructions Recorded Confirmed Last Taken Type HYDROcodone/APAP 5-325 [[place] 1 each PO Q6HR PRN #10 tablet 12/27/16 01/09/17 Unknown Rx 5-325 mg TAB] Bacitracin/Pramoxine/Aloe Vera 1 applicatio TP TID #1 tube 01/10/17 Unknown Rx [Bacitraycin Plus Ointment] levETIRAcetam [Keppra TAB] 1,000 mg PO BID #60 tablet 01/10/17 Unknown Rx Naproxen [Naprosyn] 500 mg PO BID #10 tablet 03/09/17 Unknown Rx traMADol [Ultram] 50 mg PO Q4HR PRN #10 tablet 03/09/17 Unknown Rx ED Physical Exam - General Limitations: No Limitations ED Course Vital Signs 03/09/17 09:30 Temperature 100 F H Pulse Rate 91 H Respiratory 18 Rate Blood Pressure 136/82 O2 Sat by Pulse 99 Oximetry - Reevaluation(s) Reevaluation #1: Patient is given IV fluid and Toradol. He is improved. He looks well he is not toxic. I don't think further testing is appropriate at this juncture. He is referred to her primary care provider with appropriate return criteria. 03/09/17 13:22 ED Medical Decision Making - Lab Data Result diagrams: 03/09/17 11:33 03/09/17 11:33 Laboratory Results - last 24 hr 03/09/17 03/09/17 03/09/17 11:33 11:33 11:33 WBC 7.2 RBC 5.47 H Hgb 15.9 H Hct 47.1 H MCV 86 MCH 29 MCHC 34 RDW 13.0 L Plt Count 147 Lymph % (Auto) 9.0 L [place] % (Auto) 8.3 H Eos % (Auto) 0.1 Baso % (Auto) 0.3 Lymph # 0.7 L [place] # 0.6 Eos # 0.0 Baso # 0.0 Seg Neutrophils % 82.3 H Seg Neutrophils # 5.9 PT 14.1 INR 1.04 APTT 30.4 Sodium 136 L Potassium 4.3 Chloride 95.9 L Carbon Dioxide 25 Anion Gap 19 BUN 8 L Creatinine 1.0 Estimated GFR > 60 BUN/Creatinine Ratio 8 Glucose 96 Lactic Acid Calcium 9.4 Magnesium Total Bilirubin 0.50 Direct Bilirubin < 0.2 Indirect Bilirubin 0.3 AST 15 ALT 15 Alkaline Phosphatase 81 CK-MB (CK-2) < 1.0 Total Protein 7.9 Albumin 4.4 Albumin/Globulin Ratio 1.3 03/09/17 03/09/17 11:33 11:33 WBC RBC Hgb Hct MCV MCH MCHC RDW Plt Count Lymph % (Auto) [place] % (Auto) Eos % (Auto) Baso % (Auto) Lymph # Churchill # Eos # Baso # Seg Neutrophils % Seg Neutrophils # PT INR APTT Sodium Potassium Chloride Carbon Dioxide Anion Gap BUN Creatinine Estimated GFR BUN/Creatinine Ratio Glucose Lactic Acid 1.30 Calcium Magnesium 1.90 Total Bilirubin Direct Bilirubin Indirect Bilirubin AST ALT Alkaline Phosphatase CK-MB (CK-2) Total Protein Albumin Albumin/Globulin Ratio Laboratory Results - last 24 hr 03/09/17 03/09/17 03/09/17 11:33 11:33 11:33 WBC 7.2 RBC 5.47 H Hgb 15.9 H Hct 47.1 H MCV 86 MCH 29 MCHC 34 RDW 13.0 L Plt Count 147 Lymph % (Auto) 9.0 L [place] % (Auto) 8.3 H Eos % (Auto) 0.1 Baso % (Auto) 0.3 Lymph # 0.7 L [place] # 0.6 Eos # 0.0 Baso # 0.0 Seg Neutrophils % 82.3 H Seg Neutrophils # 5.9 PT 14.1 INR 1.04 APTT 30.4 Sodium 136 L Potassium 4.3 Chloride 95.9 L Carbon Dioxide 25 Anion Gap 19 BUN 8 L Creatinine 1.0 Estimated GFR > 60 BUN/Creatinine Ratio 8 Glucose 96 Lactic Acid Calcium 9.4 Magnesium Total Bilirubin 0.50 Direct Bilirubin < 0.2 Indirect Bilirubin 0.3 AST 15 ALT 15 Alkaline Phosphatase 81 Total Creatine Kinase 120 CK-MB (CK-2) < 1.0 CK-MB (CK-2) Rel Index 0.8 Total Protein 7.9 Albumin 4.4 Albumin/Globulin Ratio 1.3 03/09/17 03/09/17 11:33 11:33 WBC RBC Hgb Hct MCV MCH MCHC RDW Plt Count Lymph % (Auto) [place] % (Auto) Eos % (Auto) Baso % (Auto) Lymph # [place] # Eos # Baso # Seg Neutrophils % Seg Neutrophils # PT INR APTT Sodium Potassium Chloride Carbon Dioxide Anion Gap BUN Creatinine Estimated GFR BUN/Creatinine Ratio Glucose Lactic Acid 1.30 Calcium Magnesium 1.90 Total Bilirubin Direct Bilirubin Indirect Bilirubin AST ALT Alkaline Phosphatase Total Creatine Kinase CK-MB (CK-2) CK-MB (CK-2) Rel Index Total Protein Albumin Albumin/Globulin Ratio Laboratory Results - last 24 hr 03/09/17 03/09/17 03/09/17 11:33 11:33 11:33 WBC 7.2 RBC 5.47 H Hgb 15.9 H Hct 47.1 H MCV 86 MCH 29 MCHC 34 RDW 13.0 L Plt Count 147 Lymph % (Auto) 9.0 L [place] % (Auto) 8.3 H Eos % (Auto) 0.1 Baso % (Auto) 0.3 Lymph # 0.7 L [place] # 0.6 Eos # 0.0 Baso # 0.0 Seg Neutrophils % 82.3 H Seg Neutrophils # 5.9 PT 14.1 INR 1.04 APTT 30.4 Sodium 136 L Potassium 4.3 Chloride 95.9 L Carbon Dioxide 25 Anion Gap 19 BUN 8 L Creatinine 1.0 Estimated GFR > 60 BUN/Creatinine Ratio 8 Glucose 96 Lactic Acid Calcium 9.4 Magnesium Total Bilirubin 0.50 Direct Bilirubin < 0.2 Indirect Bilirubin 0.3 AST 15 ALT 15 Alkaline Phosphatase 81 Total Creatine Kinase 120 CK-MB (CK-2) < 1.0 CK-MB (CK-2) Rel Index 0.8 Total Protein 7.9 Albumin 4.4 Albumin/Globulin Ratio 1.3 10/24/17 10/24/17 11:33 11:33 WBC RBC Hgb Hct MCV MCH MCHC RDW Plt Count Lymph % (Auto) [place] % (Auto) Eos % (Auto) Baso % (Auto) Lymph # [place] # Eos # Baso # Seg Neutrophils % Seg Neutrophils # PT INR APTT Sodium Potassium Chloride Carbon Dioxide Anion Gap BUN Creatinine Estimated GFR BUN/Creatinine Ratio Glucose Lactic Acid 1.30 Calcium Magnesium 1.90 Total Bilirubin Direct Bilirubin Indirect Bilirubin AST ALT Alkaline Phosphatase Total Creatine Kinase CK-MB (CK-2) CK-MB (CK-2) Rel Index Total Protein Albumin Albumin/Globulin Ratio Critical care attestation.: If time is entered above; I have spent that time in minutes in the direct care of this critically ill patient, excluding procedure time. ED Disposition Clinical Impression: Myalgia, Viral illness Disposition: TO HOME OR SELFCARE Is pt being admited?: No Does the pt Need Aspirin: No Condition: Stable Instructions: Musculoskeletal Pain (ED), Viral Syndrome (ED) Additional Instructions: Return any acute change or worsening symptoms. Return any severe or significant headache. Follow up with a primary care provider. Prescriptions: Naproxen [Naprosyn] 500 mg PO BID #10 tablet traMADol [Ultram] 50 mg PO Q4HR PRN #10 tablet PRN Reason: Pain Referrals: PRIMARY CARE, [Primary Care Provider] - 24 Hours [facility] [Provider Group] - 3-5 Days Time of Disposition: 13:25
[2017-03-09 12:29] LABS: Creatine Kinase 120 units/L (55-170)
[2017-03-09 13:41] VITALS: BP 132/82
== END 2017-03-09 13:37 | disposition home or self-care (01) ==
LOC: ED 08:59
DX: B34.9 Viral infection, unspecified (principal); M79.1 Myalgia; F17.210 Nicotine dependence, cigarettes, uncomplicated
CPT/HCPCS: 36415; 80048; 80074; 82140; 82550; 82553; 83735; 85025; 85610; 85730; 87040; 96361; 96374; 99283; J1885; J7030

== ENCOUNTER 2017-08-19 12:07 | Emergency (ER) | payer SELFPAY ==
[2017-08-19] MEDS ORDERED: KEPPRA 1,000 MG/NS 0.75% 100ML 1,000 MG/100 ML BAG IV ONE (12:25)
[2017-08-19 13:15] LABS: Basophils % (Auto) 0.3 % (0.0-1.8); Eosinophils % (Auto) 0.1 % (0.0-4.3); Hematocrit 46.2 % (35.5-45.6); Hemoglobin 15.2 gm/dl (11.8-15.2); Lymphocytes # (Auto) 1.2 K/mm3 (1.2-5.4); Lymphocytes % (Auto) 15.1 % (13.4-35.0); Mean Corpuscular HGB Conc 33 % (32-34); Mean Corpuscular Hemoglobin 29 pg (28-32); Mean Corpuscular Volume 87 fl (84-94); Monocytes # (Auto) 0.4 K/mm3 (0.0-0.8); Monocytes % (Auto) 5.3 % (0.0-7.3); Platelet Count 205 K/mm3 (140-440); Red Blood Count 5.29 M/mm3 (3.65-5.03); Red Cell Distribution Width 13.4 % (13.2-15.2)
--- NOTE | 2017-08-19 13:27 | Emergency Department Report ---
HPI - HPI HPI: 27-year-old male presents to the emergency department by EMS after he had a seizure just prior to presentation. A witness reported that his entire body was shaking and his eyes were rolling for about 2 minutes. He presents with a hematoma to the forehead as well has a laceration or abrasion to this region and some swelling to the bridge of the nose. The patient has a history of seizure disorder but stopped taking his Keppra about 2 months ago because he says that it affected his appetite. He is a tobacco smoker. He denies any excessive alcohol use or any illicit drug use. No recent travel or sick contacts at home. He does not have a primary care physician. He was not given anything for his symptoms prior to presentation. <FRANKIE MICHAEL - Last Filed: 08/19/17 15:43> <RYAN MCGHEE - Last Filed: 08/19/17 16:50> - General Chief Complaint: Seizure Time Seen by Provider: 08/19/17 12:31 ED Past Medical Hx - Past Medical History Hx Congestive Heart Failure: No Hx Diabetes: No Hx Seizures: Yes Hx Psychiatric Treatment: No Hx Asthma: No Hx COPD: No - Social History Smoking Status: Never Smoker Substance Use Type: None <FRANKIE MICHAEL - Last Filed: 08/19/17 15:43> <RYAN MCGHEE - Last Filed: 08/19/17 16:50> - Medications Home Medications: Home Medications Medication Instructions Recorded Confirmed Last Taken Type HYDROcodone/APAP 5-325 [[place] 1 each PO Q6HR PRN #10 tablet 12/27/16 01/09/17 Unknown Rx 5-325 mg TAB] Bacitracin/Pramoxine/Aloe Vera 1 applicatio TP TID #1 tube 01/10/17 Unknown Rx [Bacitraycin Plus Ointment] Naproxen [Naprosyn] 500 mg PO BID #10 tablet 03/09/17 Unknown Rx traMADol [Ultram] 50 mg PO Q4HR PRN #10 tablet 03/09/17 Unknown Rx levETIRAcetam [Keppra TAB] 500 mg PO BID #60 tablet 08/19/17 Unknown Rx ED Review of Systems ROS: Stated complaint: SEIZURE Other details as noted in HPI Comment: All other systems reviewed and negative Constitutional: denies: chills, fever Eyes: denies: eye pain, eye discharge, vision change ENT: denies: ear pain, throat pain Respiratory: denies: cough, shortness of breath, wheezing Cardiovascular: denies: chest pain, palpitations Gastrointestinal: denies: abdominal pain, nausea, diarrhea Genitourinary: denies: urgency, dysuria Musculoskeletal: denies: back pain, joint swelling, arthralgia Skin: other (forehead abrasion, hematoma) Neurological: other (seizure). denies: weakness, numbness <FRANKIE MICHAEL S - Last Filed: 08/19/17 15:43> ROS: Stated complaint: SEIZURE Other details as noted in HPI <RYAN MCGHEE - Last Filed: 08/19/17 16:50> Physical Exam - Physical Exam Vital Signs: Vital Signs 08/19/17 12:19 Temperature 97.8 F Pulse Rate 77 Blood Pressure 112/80 O2 Sat by Pulse 99 Oximetry <FRANKIE MICHAEL S - Last Filed: 08/19/17 15:43> - Physical Exam Vital Signs: Vital Signs 08/19/17 08/19/17 08/19/17 12:16 12:19 12:30 Temperature 97.8 F Pulse Rate 68 77 77 Respiratory 11 L 16 Rate Blood Pressure 112/80 112/80 112/80 O2 Sat by Pulse 98 99 98 Oximetry 08/19/17 08/19/17 08/19/17 13:00 13:46 14:16 Temperature Pulse Rate 58 L 63 59 L Respiratory 12 12 12 Rate Blood Pressure 98/55 105/72 106/62 O2 Sat by Pulse 97 99 98 Oximetry 08/19/17 08/19/17 08/19/17 14:30 14:46 15:00 Temperature Pulse Rate 60 60 56 L Respiratory 12 12 11 L Rate Blood Pressure 106/62 106/62 110/69 O2 Sat by Pulse 98 99 100 Oximetry 08/19/17 08/19/17 08/19/17 15:16 15:30 15:46 Temperature Pulse Rate 59 L 56 L 58 L Respiratory 11 L 11 L 12 Rate Blood Pressure 110/69 110/69 110/69 O2 Sat by Pulse 99 99 98 Oximetry 08/19/17 08/19/17 16:00 16:16 Temperature Pulse Rate 68 55 L Respiratory 12 10 L Rate Blood Pressure 88/58 110/69 O2 Sat by Pulse 95 100 Oximetry <MCGHEE,RYAN C - Last Filed: 08/19/17 16:50> ED Course Vital Signs 08/19/17 12:19 Temperature 97.8 F Pulse Rate 77 Blood Pressure 112/80 O2 Sat by Pulse 99 Oximetry <FRANKIE MICHAEL - Last Filed: 08/19/17 15:43> Vital Signs 08/19/17 08/19/17 08/19/17 12:16 12:19 12:30 Temperature 97.8 F Pulse Rate 68 77 77 Respiratory 11 L 16 Rate Blood Pressure 112/80 112/80 112/80 O2 Sat by Pulse 98 99 98 Oximetry 08/19/17 08/19/17 08/19/17 13:00 13:46 14:16 Temperature Pulse Rate 58 L 63 59 L Respiratory 12 12 12 Rate Blood Pressure 98/55 105/72 106/62 O2 Sat by Pulse 97 99 98 Oximetry 08/19/17 08/19/17 08/19/17 14:30 14:46 15:00 Temperature Pulse Rate 60 60 56 L Respiratory 12 12 11 L Rate Blood Pressure 106/62 106/62 110/69 O2 Sat by Pulse 98 99 100 Oximetry 08/19/17 08/19/17 08/19/17 15:16 15:30 15:46 Temperature Pulse Rate 59 L 56 L 58 L Respiratory 11 L 11 L 12 Rate Blood Pressure 110/69 110/69 110/69 O2 Sat by Pulse 99 99 98 Oximetry 08/19/17 08/19/17 16:00 16:16 Temperature Pulse Rate 68 55 L Respiratory 12 10 L Rate Blood Pressure 88/58 110/69 O2 Sat by Pulse 95 100 Oximetry - Reevaluation(s) Reevaluation #1: 08/19/17 16:48 after 2 L NS ck is trending downward. Pt ck elevated due to sz, normal renal function. pt will be d/erica and instructed to drink plenty of water. <RYAN MCGHEE - Last Filed: 08/19/17 16:50> ED Medical Decision Making - Lab Data Result diagrams: 08/19/17 12:55 08/19/17 12:55 <FRANKIE MICHAEL - Last Filed: 08/19/17 15:43> - Lab Data Result diagrams: 08/19/17 12:55 08/19/17 12:55 <RYAN MCGHEE - Last Filed: 08/19/17 16:50> Critical care attestation.: If time is entered above; I have spent that time in minutes in the direct care of this critically ill patient, excluding procedure time. <FRANKIE MICHAEL - Last Filed: 08/19/17 15:43> Critical care attestation.: If time is entered above; I have spent that time in minutes in the direct care of this critically ill patient, excluding procedure time. <RYAN MCGHEE - Last Filed: 08/19/17 16:50> ED Disposition Is pt being admited?: No Time of Disposition: 15:50 <FRANKIE MICHAEL Anthony - Last Filed: 08/19/17 15:43> <RYAN MCGHEE - Last Filed: 08/19/17 16:50> Disposition: DC-01 TO HOME OR SELFCARE Condition: Stable Instructions: Nasal Fracture (ED), Epilepsy (ED) Additional Instructions: Please follow up with a primary care physician in the next few days. I have given you a referral for a local neurologist, Dr. Edmond, to follow up regarding her seizures. Please start taking your Keppra compliantly. I have also given a referral for a local plastic surgeon, Dr Lozoya, in case you would like to follow up regarding her nasal bone fractures. Return to the emergency Department with any worsening of your symptoms or any acute distress. Prescriptions: levETIRAcetam [Keppra TAB] 500 mg PO BID #60 tablet Referrals: PRIMARY CARE, [Primary Care Provider] - 3-5 Days KWASI EDMOND MD [Staff Physician] - 3-5 Days MOHSEN LOZOYA MD [Staff Physician] - 3-5 Days [facility] [Outside] - 3-5 Days
[2017-08-19 13:31] LABS: Albumin 4.6 g/dL (3.9-5); BUN/Creatinine Ratio 14; Blood Urea Nitrogen 13 mg/dL (9-20); Calcium 9.2 mg/dL (8.4-10.2); Hemolysis Index 97
[2017-08-19 13:39] LABS: Alanine Aminotransferase 26 units/L (7-56)
--- NOTE | 2017-08-19 14:05 | Cat Scan Report ---
CT HEAD WITHOUT CONTRAST: HISTORY: Seizure. TECHNIQUE: Sequential 2.5mm CT images. COMPARISON: 01/09/17. FINDINGS: Cerebral Parenchyma: Within normal limits. Cerebellum: Within normal limits. Brainstem: Within normal limits. Ventricles: Normal. Sella: Normal. Extra-axial spaces: Normal. Basal Cisterns: Normal. Intracranial Hemorrhage: None. Midline Shift: None. Calvarium: Normal. Right frontal soft tissue swelling is noted. Sinuses: Normal. Mastoid Air Cells: Normal. Visualized Orbits: Normal. IMPRESSION: Cranial CT scan within normal limits. Right frontal soft tissue swelling.
--- NOTE | 2017-08-19 14:06 | Cat Scan Report ---
CT FACIAL BONES WITHOUT CONTRAST: HISTORY: Facial trauma. TECHNIQUE: Helical CT images with sagittal and coronal CT reformations. FINDINGS: Mildly displaced bilateral nasal bone fractures are identified which are new since 12/09/16. All paranasal sinuses are clear. No sinus wall fracture, fluid level or opacification. The orbital cavities are symmetric and intact. The mandible is intact. The skull base and upper cervical spine demonstrate no evidence for acute injury. IMPRESSION: Bilateral nasal bone fractures.
[2017-08-19] MEDS ORDERED: NACL 0.9% 1000 ML 1,000 ML IV ONE ×2 (14:24→14:25)
[2017-08-19 16:21] VITALS: BP 110/69
== END 2017-08-19 17:24 | disposition home or self-care (01) ==
LOC: ED 12:07
DX: G40.909 Epilepsy, unspecified, not intractable, without status epilepticus (principal)
CPT/HCPCS: 36415; 70450; 70486; 80053; 82550; 84443; 85025; 96361; 96365; 99285; J1953; J7030

== ENCOUNTER 2017-10-15 08:39 | Emergency (ER) | payer SELFPAY ==
--- NOTE | 2017-10-15 09:28 | Emergency Department Report ---
ED Seizure HPI - General Chief Complaint: Seizure Stated Complaint: SEIZURE Time Seen by Provider: 10/15/17 09:27 Source: EMS Mode of arrival: Stretcher Limitations: No Limitations - History of Present Illness MD Complaint: seizure -: Sudden Description of Episode: tonic-clonic movement Witnessed:: Yes Trauma: No Seizure History: known seizure disorder, history of non-compliance Place: home Possible Precipitating Event: other (Patient is not taking his Keppra.) Associated Symptoms: denies other symptoms Treatments Prior to Arrival: none - Related Data Previous Rx's Medication Instructions Recorded Last Taken Type HYDROcodone/APAP 5-325 [[place] 1 each PO Q6HR PRN #10 tablet 12/27/16 Unknown Rx 5-325 mg TAB] Bacitracin/Pramoxine/Aloe Vera 1 applicatio TP TID #1 tube 01/10/17 Unknown Rx [Bacitraycin Plus Ointment] Naproxen [Naprosyn] 500 mg PO BID #10 tablet 03/09/17 Unknown Rx traMADol [Ultram] 50 mg PO Q4HR PRN #10 tablet 03/09/17 Unknown Rx levETIRAcetam [Keppra TAB] 500 mg PO BID #60 tablet 08/19/17 Unknown Rx levETIRAcetam [Keppra TAB] 500 mg PO BID #60 tablet 10/15/17 Unknown Rx Allergies Allergy/AdvReac Type Severity Reaction Status Date / Time No Known Allergies Allergy Unverified 11/28/13 19:39 ED Review of Systems ROS: Stated complaint: SEIZURE Other details as noted in HPI Comment: All other systems reviewed and negative Constitutional: denies: chills, fever Eyes: denies: eye pain, eye discharge ENT: denies: ear pain, dental pain Respiratory: denies: cough, shortness of breath Cardiovascular: denies: chest pain, palpitations, dyspnea on exertion, edema Endocrine: no symptoms reported Gastrointestinal: denies: abdominal pain, nausea, vomiting, diarrhea Genitourinary: denies: urgency, frequency Musculoskeletal: denies: back pain, joint swelling Skin: denies: rash, change in color Neurological: denies: headache, weakness, numbness, paresthesias Psychiatric: denies: anxiety, depression Hematological/Lymphatic: denies: easy bleeding, easy bruising ED Past Medical Hx - Past Medical History Hx Congestive Heart Failure: No Hx Diabetes: No Hx Seizures: Yes Hx Psychiatric Treatment: No Hx Asthma: No Hx COPD: No - Social History Smoking Status: Never Smoker Substance Use Type: None - Medications Home Medications: Home Medications Medication Instructions Recorded Confirmed Last Taken Type HYDROcodone/APAP 5-325 [[place] 1 each PO Q6HR PRN #10 tablet 12/27/16 01/09/17 Unknown Rx 5-325 mg TAB] Bacitracin/Pramoxine/Aloe Vera 1 applicatio TP TID #1 tube 01/10/17 Unknown Rx [Bacitraycin Plus Ointment] Naproxen [Naprosyn] 500 mg PO BID #10 tablet 03/09/17 Unknown Rx traMADol [Ultram] 50 mg PO Q4HR PRN #10 tablet 03/09/17 Unknown Rx levETIRAcetam [Keppra TAB] 500 mg PO BID #60 tablet 08/19/17 Unknown Rx levETIRAcetam [Keppra TAB] 500 mg PO BID #60 tablet 10/15/17 Unknown Rx ED Physical Exam - General Limitations: No Limitations General appearance: alert, in no apparent distress - Head Head exam: Present: atraumatic, normocephalic, normal inspection - Eye Eye exam: Present: normal appearance, PERRL, EOMI Pupils: Present: normal accommodation - ENT ENT exam: Present: normal exam, normal orophraynx, mucous membranes moist - Neck Neck exam: Present: normal inspection, full ROM. Absent: tenderness - Respiratory Respiratory exam: Present: normal lung sounds bilaterally. Absent: respiratory distress, wheezes, rhonchi - Cardiovascular Cardiovascular Exam: Present: regular rate, normal rhythm, normal heart sounds - GI/Abdominal GI/Abdominal exam: Present: soft, normal bowel sounds. Absent: distended, tenderness, guarding - Extremities Exam Extremities exam: Present: normal inspection, full ROM, normal capillary refill - Back Exam Back exam: Present: normal inspection, full ROM. Absent: tenderness - Neurological Exam Neurological exam: Present: alert, oriented X3, CN II-XII intact - Psychiatric Psychiatric exam: Present: normal affect, normal mood - Skin Skin exam: Present: warm, dry, intact, normal color. Absent: rash ED Course Vital Signs 10/15/17 11:04 Temperature 97.7 F Pulse Rate 77 Respiratory 18 Rate Blood Pressure 101/91 [Left] O2 Sat by Pulse 99 Oximetry ED Medical Decision Making - Lab Data Result diagrams: 10/15/17 09:19 10/15/17 09:19 - Radiology Data Radiology results: report reviewed Seizure Disorder. Non Compliant with Seizure Medication. Critical care attestation.: If time is entered above; I have spent that time in minutes in the direct care of this critically ill patient, excluding procedure time. ED Disposition Clinical Impression: Seizure, Non compliance w medication regimen Disposition: TO HOME OR SELFCARE Is pt being admited?: No Does the pt Need Aspirin: No Condition: Stable Instructions: Recurrent Seizures Adult (ED) Additional Instructions: Please follow up with the Neurologist Dr Perez within the next 24 hours. Take your seizure medication as prescribed. Return to the ED if your condition worsens. Prescriptions: levETIRAcetam [Keppra TAB] 500 mg PO BID #60 tablet Referrals: PRIMARY CAREMD [Primary Care Provider] - 3-5 Days KWASI PEREZ MD [Staff Physician] - 3-5 Days Time of Disposition: 11:25
[2017-10-15 09:37] LABS: Hematocrit 43.5 % (35.5-45.6); Hemoglobin 14.3 gm/dl (11.8-15.2); Mean Corpuscular HGB Conc 33 % (32-34); Mean Corpuscular Hemoglobin 29 pg (28-32); Mean Corpuscular Volume 88 fl (84-94); Platelet Count 191 K/mm3 (140-440); Red Blood Count 4.92 M/mm3 (3.65-5.03); Red Cell Distribution Width 13.1 % (13.2-15.2)
[2017-10-15 09:55] LABS: BUN/Creatinine Ratio 8; Blood Urea Nitrogen 8 mg/dL (9-20); Calcium 9.1 mg/dL (8.4-10.2); Hemolysis Index 14
[2017-10-15] MEDS ORDERED: KEPPRA 1,000 MG/NS 0.75% 100ML 1,000 MG/100 ML BAG IV ONE (09:55)
[2017-10-15 10:40] LABS: Alanine Aminotransferase 11 units/L (7-56); Albumin 4.1 g/dL (3.9-5)
[2017-10-15 10:41] LABS: Bilirubin,Direct < 0.2 mg/dL (0-0.2)
[2017-10-15 11:05] VITALS: BP 101/91
[2017-10-15] MEDS ORDERED: TYLENOL PO ONE (11:06)
== END 2017-10-15 11:50 | disposition home or self-care (01) ==
LOC: ED 08:39
DX: G40.909 Epilepsy, unspecified, not intractable, without status epilepticus (principal); Z91.14 Patient's other noncompliance with medication regimen
CPT/HCPCS: 36415; 80048; 80074; 82962; 85027; 96374; 99284; J1953

== ENCOUNTER 2017-10-23 08:49 | Emergency (ER) | payer SELFPAY ==
[2017-10-23] MEDS ORDERED: NACL 0.9% 1000 ML 1,000 ML IV ONE (10:53)
[2017-10-23] MEDS ORDERED: KEPPRA 1,000 MG/NS 0.75% 100ML 1,000 MG/100 ML BAG IV ONE (10:53)
[2017-10-23] MEDS ORDERED: SUBLIMAZE IV ONE (11:07)
[2017-10-23] MEDS ORDERED: ZOFRAN IV ONE (11:07)
[2017-10-23] MEDS ORDERED: ATIVAN ONE (11:11)
[2017-10-23] MEDS ORDERED: ATIVAN IV ONE (11:18)
[2017-10-23 11:37] LABS: Basophils # (Auto) 0.1 K/mm3 (0.0-0.1); Basophils % (Auto) 0.6 % (0.0-1.8); Eosinophils # (Auto) 0.1 K/mm3 (0.0-0.4); Eosinophils % (Auto) 0.7 % (0.0-4.3); Lymphocytes # (Auto) 3.5 K/mm3 (1.2-5.4); Lymphocytes % (Auto) 32.4 % (13.4-35.0); Mean Corpuscular HGB Conc 30 % (32-34); Mean Corpuscular Hemoglobin 29 pg (28-32); Mean Corpuscular Volume 94 fl (84-94); Monocytes # (Auto) 0.9 K/mm3 (0.0-0.8); Monocytes % (Auto) 8.2 % (0.0-7.3); Platelet Count 220 K/mm3 (140-440); Red Blood Count 5.56 M/mm3 (3.65-5.03); Red Cell Distribution Width 13.9 % (13.2-15.2)
[2017-10-23 11:58] LABS: BUN/Creatinine Ratio 9; Blood Urea Nitrogen 9 mg/dL (9-20); Calcium 9.5 mg/dL (8.4-10.2); Hemolysis Index 12
[2017-10-23 12:01] LABS: Hematocrit 52.1 % (35.5-45.6); Hemoglobin 15.8 gm/dl (11.8-15.2)
--- NOTE | 2017-10-23 12:09 | Emergency Department Report ---
HPI - General Chief Complaint: Seizure Time Seen by Provider: 10/23/17 10:53 - HPI HPI: The patient is a 27-year-old male with a significant history of epilepsy, who presents for evaluation of seizure. The patient is accompanied by significant other who witnessed the patient exhibiting jerking of the extremities and body found in the bathroom at 8 AM this morning, 2 hours prior to my evaluation, constant for 10-15 seconds, self resolving, and associated with subsequent confusion. Per EMS the patient was disoriented and confused on arrival to scene , but regained orientation in route to the ED. The patient complains of a mild to moderate achy generalized headache, constant since awakening from his seizure 2 hours ago. The patient denies fever, neck pain, neck stiffness, biting of the tongue/tongue pain, chest pain, dyspnea, abdominal pain, back pain , pain to the extremities, vision or hearing changes, smell or taste changes, paresthesias, facial drooping, slurred speech, urine or bowel incontinence or retention, or other focal neurological deficit. He shares that he has been noncompliant with seizure medication for some time. ED Past Medical Hx - Past Medical History Hx Congestive Heart Failure: No Hx Diabetes: No Hx Seizures: Yes Hx Psychiatric Treatment: No Hx Asthma: No Hx COPD: No - Social History Smoking Status: Current Every Day Smoker Substance Use Type: Alcohol, Marijuana - Medications Home Medications: Home Medications Medication Instructions Recorded Confirmed Last Taken Type HYDROcodone/APAP 5-325 [[place] 1 each PO Q6HR PRN #10 tablet 12/27/16 01/09/17 Unknown Rx 5-325 mg TAB] Bacitracin/Pramoxine/Aloe Vera 1 applicatio TP TID #1 tube 01/10/17 Unknown Rx [Bacitraycin Plus Ointment] Naproxen [Naprosyn] 500 mg PO BID #10 tablet 03/09/17 Unknown Rx traMADol [Ultram] 50 mg PO Q4HR PRN #10 tablet 03/09/17 Unknown Rx levETIRAcetam [Keppra TAB] 500 mg PO BID #60 tablet 10/15/17 Unknown Rx levETIRAcetam [Keppra TAB] 500 mg PO BID #60 tablet 10/23/17 Unknown Rx ED Review of Systems ROS: Stated complaint: SEIZURE Other details as noted in HPI Constitutional: denies: fever ENT: denies: throat or neck pain Respiratory: denies: cough, shortness of breath Cardiovascular: denies: chest pain Endocrine: denies unexplained weight loss or gain Gastrointestinal: denies: abdominal pain, nausea Genitourinary: denies: dysuria Musculoskeletal: denies: leg swelling Skin: denies: rash Neurological: reports: headache and seizure Hematological/Lymphatic: denies: easy bleeding or easy bruising Psych: denies sadness or hopelessness Physical Exam - Physical Exam Vital Signs: Vital Signs 10/23/17 09:08 Temperature 98.2 F Pulse Rate 74 Respiratory 18 Rate Blood Pressure 101/62 O2 Sat by Pulse 99 Oximetry Physical Exam: General: well-nourished, well-developed, no acute distress Head: Normocephalic, atraumatic Eyes: normal sclera ENT: Mucous membranes are pale and dry Neck: No neck stiffness, no cervical adenopathy Respiratory: Breath sounds equal bilaterally, no wheezing, rales, or rhonchi Cardio: S1 and S2 present, no murmurs, rubs, gallops, capillary refill is delayed Abdomen: Normoactive bowel sounds, soft abdomen, no rigidity, no guarding or rebound tenderness Chest WALL/Back: No tenderness to palpation of the chest wall, no CVA tenderness with percussion Musc: No pitting edema Skin: No rash Neuro: alert oriented x4, normal cognition, speech normal, PERRL, EOM intact, no facial drooping, no uvula or tongue deviation on protrusion, no deficit with rotation of neck or shoulder shrug, no obvious gross motor deficit in the upper or lower extremities with flexion or extension at the shoulder, elbow, wrist, hip, knee, or ankle bilaterally, no obvious gross sensation deficit to crude touch or 2 pt discrimination, 2+ symmetric reflexes on DTR testing, no coordination deficit with [id number] or [id number] testing, Babinski downgoing, patient able to to ambulate without abnormal gait Psych: Normal affect ED Course Vital Signs 10/23/17 09:08 Temperature 98.2 F Pulse Rate 74 Respiratory 18 Rate Blood Pressure 101/62 O2 Sat by Pulse 99 Oximetry ED Medical Decision Making - Lab Data Result diagrams: 10/23/17 11:20 10/23/17 11:20 - Medical Decision Making The patient was seen and examined by myself. The patient is placed on a electronic device monitor and continuous pulse ox. On initial evaluation, the patient was found to be in no distress. Evaluation orders were placed. Keppra as ordered for the patient. The patient experience seizure-like activity for approximately 10 seconds prior to receiving his Keppra. The patient was given Ativan and his seizure terminated. Lab results reveal elevated RBC, hemoglobin, and hematocrit, consistent with hemoconcentration and exam findings of dehydration and otherwise labs were grossly unremarkable. The patient is given 1 L normal saline fluid bolus for treatment of dehydration. CT scan the head is negative for acute intracranial disease process. The patient was reevaluated and reported that their symptoms were markedly improved. The patient was monitored in the emergency department for greater than 2 hours without any further seizure-like activity. The patient is stable for discharge with outpatient follow-up. The patient is given follow-up and return instructions. The patient expressed understanding and agreed with the plan. The patient is discharged in stable condition. Critical care attestation.: If time is entered above; I have spent that time in minutes in the direct care of this critically ill patient, excluding procedure time. ED Disposition Clinical Impression: Seizure, Dehydration, Acute post-traumatic headache, not intractable Disposition: DC-01 TO HOME OR SELFCARE Is pt being admited?: No Does the pt Need Aspirin: No Condition: Stable Instructions: Epilepsy (ED), Recurrent Seizures Adult (ED) Referrals: PRIMARY MD LAURA [Primary Care Provider] - 3-5 Days JAKE LR MD [Referring] - 3-5 Days [facility] [Outside] - 3-5 Days Time of Disposition: 12:12
--- NOTE | 2017-10-23 12:38 | Cat Scan Report ---
CT HEAD WITHOUT CONTRAST: 10/23/17 08:49:00 CLINICAL: Headache. TECHNIQUE: 2.5-mm noncontrast scans. COMPARISON:08/19/17 FINDINGS: The ventricles and sulci are normal for age. No abnormal density. No mass or mass effect. No hemorrhage, edema or extra-axial collection. The sinuses are clear. Normal orbits and soft tissues. The calvarium and skull base are intact. IMPRESSION: Normal study.
--- NOTE | 2017-10-23 13:02 | XRay Report ---
AP CERVICAL SPINE X-RAY : 10/23/17 11:06:00 CLINICAL: Neck pain after seizure FINDINGS: Normal vertebral body alignment from C4-T1. Normal soft tissues. IMPRESSION: Normal study but a very limited evaluation of the neck with a single AP view of the C-spine.
[2017-10-23 15:07] VITALS: BP 124/81
[2017-10-23] MEDS ORDERED: NORCO 5/325 ONE (15:32)
[2017-10-23] MEDS ORDERED: NORCO 5/325 PO ONE (15:35)
== END 2017-10-23 16:06 | disposition home or self-care (01) ==
LOC: ED 08:49
DX: R56.9 Unspecified convulsions (principal); G44.319 Acute post-traumatic headache, not intractable; E86.0 Dehydration; F17.200 Nicotine dependence, unspecified, uncomplicated; F12.10 Cannabis abuse, uncomplicated
CPT/HCPCS: 36415; 70450; 72020; 80048; 82550; 82962; 85025; 93005; 93010; 96361; 96365; 96375; 99285; G0480; J1953; J2060; J2405; J7030; 80320; J3010